=== PATIENT | male | born 1975 | race Caucasian/White ===

== ENCOUNTER 2023-06-13 08:55 | Outpatient (CLI) | payer OTHER ==
[2023-06-13 09:46] LABS: HEMATOCRIT 44.5 % (39.0-48.0); HEMOGLOBIN 15.1 g/dL (13-16.00); MEAN CELL VOLUME 84.8 fL (80.0-100.00); MEAN CORPUSCULAR HEMOGLOBIN 28.8 pg (27.00-32.0); PLATELET COUNT 190 K/uL (150-450); RED BLOOD COUNT 5.25 M/uL (4.00-6.00)
[2023-06-13 10:15] LABS: PROTHROMBIN TIME 10.5 SECONDS (9.0-11.5)
[2023-06-13 10:19] LABS: PH,URINE 5.5 (5.0-8.0); URINE APPEARANCE Clear; URINE BILIRRUBIN Negative (NEGATIVE); URINE BLOOD Negative; URINE COLOR Yellow; URINE GLUCOSE Negative (NEGATIVE); URINE LEUKOCYTE Negative; URINE NITRATE Negative; URINE PROTEIN Negative (NEGATIVE); URINE UROBILINOGEN 0.2 E.U./dl
[2023-06-13 10:24] LABS: URINE BACTERIA 7.5 uL (0.0-1933); URINE RBC 2.1 uL (0.0-20.8); URINE WBC 2.7 uL (0.0-23.2)
[2023-06-13 10:25] LABS: CALCIUM 9.2 mg/dL (8.5-10.1); CREATININE SERUM 0.81 mg/dL (0.70-1.30); GFR 101.28; POTASSIUM 3.84 mEq/L (3.5-5.1)
[2023-06-13 10:28] LABS: URINE EPITHELIAL CELLS 0.7 uL (0.0-38.8)
== END 2023-06-13 23:00 | disposition home or self-care (01) ==
LOC: EDBD 08:55 → LAB 08:55
PROVIDERS: ATTEND Surgery
DX: Z01.818 Encounter for other preprocedural examination (principal); Z20.828 Contact with and (suspected) exposure to other viral communicable diseases; Z20.818 Contact with and (suspected) exposure to other bacterial communicable diseases; K80.20 Calculus of gallbladder without cholecystitis without obstruction

== ENCOUNTER 2023-06-15 12:18 | Inpatient (IN) | payer OTHER ==
[~2023-06-15] VITALS: Ht 177.8 cm; Wt 98.9 kg
[2023-06-15] MEDS ORDERED: NASONEX 24HR AL17 ML (14:53)
[2023-06-17] MEDS ORDERED: NEURONTIN300 MG PO (18:57)
[2023-06-17] MEDS ORDERED: TRAM1TAB98 PO (18:57)
== END 2023-06-18 | disposition home or self-care (01) | DRG 419 ==
LOC: SURG 06-17 07:00 → O/R 06-17 07:24 → SURG 06-17 12:17 → O/R 06-18
PROVIDERS: ADMIT Surgery; ATTEND Surgery
PROC: BF13YZZ Fluoroscopy of Gallbladder and Bile Ducts using Other Contrast (ICD-10-PCS; 2023-06-17)
PROC: 0FT44ZZ Resection of Gallbladder, Percutaneous Endoscopic Approach (ICD-10-PCS; principal; 2023-06-17 07:00)
DX: K80.10 Calculus of gallbladder with chronic cholecystitis without obstruction (principal); Z20.822 Contact with and (suspected) exposure to COVID-19